=== PATIENT | female | born 1960 | race Hispanic/Latino ===

== ENCOUNTER → 2018-11-24 | Outpatient (CLI) | payer OTHER ==
[~2018-11-24] MED LIST: ASPIRIN CHEW81 MG PO; BACLOFEN10 MG PO; BRILINTA90 MG; CEFDINIR300 MG PO; CYMBALTA20 MG PO; EFFIENT10 MG PO; GABAPENTIN300 MG PO; GLIMEPIRIDE2 MG PO; JANUVIA100 MG PO; LEVEMIR100 UNIT/1; LEVOTHYROXINE112 MCG PO; LINZESS; LISINOPRIL2.5 MG PO; METFORMIN HCL500 MG PO; NAPROXEN250 MG PO; NITROGLYCERIN0.4 MG SL; SIMVASTATIN40 MG PO
--- NOTE | 2018-11-24 13:21 | Diagnostic Imaging Report ---
EXAM: US ABDOMEN COMPLETE INDICATION: Hepatic fibrosis. COMPARISON: Report from CT abdomen/pelvis 04/13/2015, although the images are not available for review at the time of this dictation. TECHNIQUE: Transverse and longitudinal barnett scale and color doppler sonographic images of the abdomen were obtained. FINDINGS: LIVER 15.6 cm in the right midclavicular line. Normal echogenicity of the liver with normal contour, no masses. SPLEEN 8.9 cm in maximum diameter. Normal echogenicity, no masses. GALLBLADDER Status post cholecystectomy. BILE DUCTS No intra nor extra-hepatic biliary dilation. Common bile duct measures 0.2 cm PANCREAS: Visualized portions are normal. RIGHT KIDNEY: 11.4 cm Echogenicity: Normal Collecting System: No hydronephrosis Stones: None Cyst/Mass: None LEFT KIDNEY: 11.1 cm Echogenicity: Normal Collecting System: No hydronephrosis Stones: None Cyst/Mass: None VESSELS: Aorta: Visualized portions are within normal size limits Inferior Vena Cava: Visualized portions are normal Main Portal Vein: 1.0 cm, normal size with hepatopetal flow. FREE FLUID: None IMPRESSION: Liver measures at the upper limits of normal. No sonographic evidence of hepatic steatosis. Status post cholecystectomy. Signed by: Dr. Irlanda López MD on 11/24/2018 1:18 PM
== END ==
LOC: US 11:01
PROVIDERS: ATTEND Internal Medicine Gastroenterology
DX: K74.0 Hepatic fibrosis (principal)
CPT/HCPCS: 76700

== ENCOUNTER → 2018-11-25 | Day surgery (SDC) | payer OTHER ==
[~2018-11-25] MED LIST changes: +FENTANYL CITRATE/PF 100MCG/2 ML INJ ONE; +INSULIN REGULAR, HUMAN 100 UNIT/1 ML 3ML VIAL ONE; +MIDAZOLAM HCL 2 MG/2 ML VIAL ONE; +PROPOFOL IV EMULSION 10 MG/ML 50 ML VIAL ONE
--- OUTSIDE RECORDS SUMMARY | 2018-11-25 06:59 | XMS REPORT ---
[facility] Unknown Phone Unavailable Care Team Providers Care Color Dipper Name Role Phone MAHI GOLDSTEIN Unavailable Unavailable Payers Payer Name Policy Type Policy Number Effective Date Expiration Date Problems This patient has no known problems. Allergies, Adverse Reactions, Alerts Allergy Name Allergy Type Status Severity Reaction(s) Onset Date Inactive Date Treating Clinician Comments No Known Allergies DA Active U 2018-10-07 00:00:00 No Known Allergies DA Active U 2018-10-04 00:00:00 No Known Allergies DA Active U 2018-02-25 00:00:00 No Known Allergies DA Active U 2017-12-22 00:00:00 Medications This patient has no known medications. Encounters Start Date/Time End Date/Time Encounter Type Admission Type Attending [facility] Care Department Encounter ID 2018-02-06 00:00:00 2018-02-06 00:00:[address] [facility] [id number] 2018-01-25 00:00:00 2018-01-25 00:00:[address] [facility] [id number] 2018-01-08 00:00:00 2018-01-08 00:00:[address] [facility] [id number] 2017-12-11 15:23:11 2017-12-11 15:23:[address] [facility] [id number] 2017-12-11 13:42:47 2017-12-11 13:42:[address] [facility] [id number] 2017-12-11 10:29:17 2017-12-11 10:29:[address] [facility] [id number] 2017-12-03 00:00:00 2017-12-03 00:00:[address] [facility] [id number] 2017-10-28 12:36:43 2017-10-28 12:36:[address] [facility] [id number] 2017-10-28 10:14:06 2017-10-28 10:14:[address] [facility] [id number] 2017-10-27 00:00:00 2017-10-27 00:00:[address] [facility] [id number] 2017-10-22 10:19:03 2017-10-22 10:19:[address] [facility] [id number] 2017-10-20 00:00:00 2017-10-20 00:00:[address] [facility] [id number] 2017-07-29 09:37:15 2017-07-29 09:37:[address] [facility] [id number] 2017-07-29 00:00:00 2017-07-29 00:00:[address] [facility] [id number] 2017-07-29 00:00:00 2017-07-29 00:00:[address] [facility] [id number] 2017-07-08 00:00:00 2017-07-08 00:00:[address] [facility] [id number] 2017-05-28 12:24:26 2017-05-28 12:24:[address] [facility] [id number] 2017-05-26 07:46:22 2017-05-26 07:46:[address] [facility] [id number] 2017-05-26 07:09:30 2017-05-26 07:09:[address] [facility] [id number] 2017-05-12 00:00:00 2017-05-12 00:00:[address] [facility] [id number] 2017-05-07 10:24:50 2017-05-07 10:24:[address] [facility] [id number] 2017-05-02 14:06:59 2017-05-02 14:06:[address] [facility] [id number] 2017-05-02 00:00:00 2017-05-02 00:00:[address] [facility] [id number] 2017-05-01 09:52:28 2017-05-01 09:52:[address] [facility] [id number] 2017-05-01 07:37:34 2017-05-01 07:37:34 Outpatient [facility] [id number] 2017-05-01 00:00:00 2017-05-01 00:00:[address] [facility] [id number] 2017-04-28 09:29:48 2017-04-28 09:29:[address] [facility] [id number] 2017-04-20 00:00:00 2017-04-20 00:00:[address] [facility] [id number] 2017-03-26 00:00:00 2017-03-26 00:00:[address] [facility] [id number] 2017-03-17 00:00:00 2017-03-17 00:00:[address] [facility] [id number] 2017-03-09 11:50:21 2017-03-09 11:50:[address] [facility] [id number] 2017-03-09 11:28:48 2017-03-09 11:28:[address] [facility] [id number] 2017-03-09 09:58:21 2017-03-09 09:58:[address] [facility] [id number] 2017-02-27 10:09:38 2017-02-27 10:09:[address] [facility] [id number] 2017-02-23 14:38:29 2017-02-23 14:38:[address] [facility] [id number] 2017-02-10 09:28:39 2017-02-10 09:28:[address] [facility] [id number] 2017-02-10 09:11:07 2017-02-10 09:11:[address] [facility] [id number] 2017-02-10 09:05:14 2017-02-10 09:05:[address] [facility] [id number] 2017-02-10 08:08:46 2017-02-10 08:08:[address] [facility] [id number] 2017-02-10 00:00:00 2017-02-10 00:00:[address] [facility] [id number] 2016-12-18 06:16:24 2016-12-18 06:16:24 Outpatient [facility] [id number] 2016-12-16 00:00:00 2016-12-16 00:00:[address] [facility] [id number] 2016-12-10 10:28:34 2016-12-10 10:28:[address] [facility] [id number] 2016-12-09 00:00:00 2016-12-09 00:00:[address] [facility] [id number] 2016-12-05 12:45:49 2016-12-05 12:45:[address] [facility] [id number] 2016-11-06 00:00:00 2016-11-06 00:00:[address] [facility] [id number] 2016-10-27 00:00:00 2016-10-27 00:00:[address] [facility] [id number] 2016-10-22 10:11:47 2016-10-22 10:11:[address] [facility] [id number] 2016-10-17 00:00:00 2016-10-17 00:00:[address] [facility] [id number] 2016-10-16 10:14:47 2016-10-16 10:14:[address] [facility] [id number] 2016-10-14 00:00:00 2016-10-14 00:00:[address] [facility] [id number] 2016-09-30 10:30:44 2016-09-30 10:30:[address] [facility] [id number] 2016-09-30 09:08:05 2016-09-30 09:08:[address] [facility] [id number] Results Test Description Test Time Test Comments Text Results Atomic Results Result Comments US ABDOMEN COMPLETE 2018-11-24 13:15:00 [place] [address] Patient Name: HOMERO KENNEDY MR #: [id number] : 1960 Age/Sex: 58/F Req #: [id number] Adm Physician: Ordered by: MAHI GOLDSTEIN MD Report #: [id number] Location: Room/Bed: Procedure: [id number] US/US ABDOMEN COMPLETE Exam Date: 11/24/18 Exam Time: 1153 REPORT STATUS: Signed EXAM: US ABDOMEN COMPLETE INDICATION: Hepatic f ibrosis. COMPARISON: Report from CT abdomen/pelvis 04/13/2015, although the images are not available for review at the time of this dictation. TECHNIQUE: Transverse and longitudinal barnett scale and color doppler sonographic images of the abdomen were obtained. FINDINGS: LIVER 15.6 cm in the right midclavicular line. Normal echogenicity of the liver with normal contour, no masses. SPLEEN 8.9 cm in maximum diameter. Normal echogenicity, no masses. GALLBLADDER Status post cholecystectomy. BILE DUCTS No intra nor extra-hepatic biliary dilation. Common bile duct measures 0.2 cm PANCREAS: Visualized portions are normal. RIGHT KIDNEY: 11.4 cm Echogenicity: Normal Collecting System: No hydronephrosis Stones: None Cyst/Mass: None LEFT KIDNEY: 11.1 cm Echogenicity: Normal Collecting System: No hydronephrosis Stones: None Cyst/Mass: None VESSELS: Aorta: Visualized portions are within normal size limits Inferior Vena Cava: Visualized portions are normal Main Portal Vein: 1.0 cm, normal size with hepatopetal flow. FREE FLUID: None IMPRESSION: Liver measures at the upper limits of normal. No sonographic evidence of hepatic steatosis. Status post cholecystectomy. Signed by: Dr. Tamra Browne MD on 11/24/2018 1:18 PM Dictated By: TAMRA BROWNE MD Transcribed By: DEMAR on 11/24/188 COPY TO: MAHI GOLDSTEIN MD GLUBED 2018-10-12 12:17:00 GLUBED (test code=GLUBED) 320 mg/dL 74-106 Performed by certified break and load operator at [facility] [id number] 08:20:00* Test Item Value Reference Range Comments GLUBED (test code=GLUBED) 199 mg/dL 74-106 Performed by certified break and load operator at [facility] [id number] 20:46:00* Test Item Value Reference Range Comments GLUBED (test code=GLUBED) 181 mg/dL 74-106 Performed by certified break and load operator at [facility] [id number] 16:48:00* Test Item Value Reference Range Comments GLUBED (test code=GLUBED) 230 mg/dL 74-106 Performed by certified break and load operator at [facility] [id number] 11:41:00* Test Item Value Reference Range Comments GLUBED (test code=GLUBED) 306 mg/dL 74-106 Performed by certified break and load operator at [facility] PROTHROMBIN [id number] 08:59:00* Test Item Value Reference Range Comments PROTHROMBIN TIME PATIENT (test code=PTP) 10.8 seconds 9.0-14.0 INTERNATIONAL NORMAL RATIO (test code=INR) 0.9 0.8-1.2 The therapeutic range for oral anticoagulant therapy formost indications is an international normalized ratio (INR)of between 2.0 and 3.0. The recommended therapeutic INRrange for various clinical situations is listed below: Clinical Situation INR range Pulmonary e mbolism treatment (2.0-3.0)Venous thrombosis treatmentVenous thrombosis prophylaxis (high risk surgery)Prevention of systemic embolism from: Acute myocardial infarction Valvular heart disease Atrial fibrillation Mechanical prosthetic heart valves (2.5-3.5) IS PATIENT ON ANTICOAGULANTS? NTHROMBOPLASTIN TIME [id number] 08:59:00* Test Item Value Reference Range Comments THROMBOPLASTIN TIME PARTIAL (test code=PTT) 29.8 seconds 25.0-36.5 IS PATIENT ON ANTICOAGULANTS? [id number] 07:44:00* Test Item Value Reference Range Comments GLUBED (test code=GLUBED) 174 mg/dL 74-106 Performed by certified break and load operator at [facility] CBC W/MANUAL [id number] 07:32:00* Test Item Value Reference Range Comments WHITE BLOOD CELL (test code=WBC) 7.4 K/mm3 4.5-12.5 RED BLOOD CELL (test code=RBC) 4.22 mill/mm3 3.7-5.2 HEMOGLOBIN (test code=HGB) 11.7 gram/dL 11.5-15.5 HEMATOCRIT (test code=HCT) 36.6 % 36.0-46.0 MEAN CELL VOLUME (test code=MCV) 86.7 fL 80-98 MEAN CELL HGB (test code=MCH) 27.7 picogram 27.0-33.0 MEAN CELL HGB CONCETRATION (test code=MCHC) 32.0 gram/dL 33.0-36.0 RED CELL DISTRIBUTION WIDTH (test code=RDW) 13.3 % 11.6-16.2 RED CELL DISTRIBUTION WIDTH SD (test code=RDW-SD) 41.6 fL 37.0-51.0 PLATELET COUNT (test code=PLT) 371 K/mm3 150-450 MEAN PLATELET VOLUME (test code=MPV) 9.1 fL 6.7-11.0 IMMATURE GRANULOCYTE % (test code=IG%) 0.3 % 0.0-5.0 NUCLEATED RBC % (test code=NRBC%) 0.0 % 0-0 NEUTROPHIL # (test code=NT#) 3.73 K/mm3 1.8-7.7 IMMATURE GRANULOCYTE # (test code=IG#) 0.02 x10 3/uL 0-0.03 LYMPHOCYTE # (test code=LY#) 3.04 K/mm3 1.0-5.0 MONOCYTE # (test code=MO#) 0.54 K/mm3 0-0.8 EOSINOPHIL # (test code=EO#) 0.00 K/mm3 0.0-0.5 BASOPHIL # (test code=BA#) 0.07 K/mm3 0.0-0.2 NUCLEATED RBC # (test code=NRBC#) 0.00 K/mm3 0.0-0.1 MANUAL DIFF REQUIRED (test code=MDIFF) YES STAIN ACCEPTABILITY (test code=STN ACCEPTABLE) STAIN ACCEPTABLE TOTAL CELLS COUNTED (test code=TCC) 114 #CELLS SEGMENTED NEUTROPHILS (test code=SEG) 61.4 % 39-69 BAND NEUTROPHIL (test code=BAND) 0 % 0-10 LYMPHOCYTE (test code=LYMPH) 28.1 % 25-55 REACTIVE LYMPH (test code=RELYMPH) 0 % MONOCYTE (test code=MON) 4.4 % 0-10 EOSINOPHIL (test code=EOS) 1.7 % 0.0-5.0 BASOPHIL (test code=BASO) 0 % 0-1.0 METAMYELOCYTE (test code=META) 1.8 % 0-0 MYELOCYTE (test code=MYELO) 1.7 % 0.0-0.0 PROMYELOCYTE (test code=PROM) 0 % 0-0 POIKILOCYTOSIS (test code=POIK) 1+ BASOPHILIC STIPPLING (test code=STP) 1+ ANISOCYTOSIS (test code=ANISO) 1+ MACROCYTOSIS (test code=MACR) 1+ ROULEAUX (test code=ROU) SLIGHT PLATELET ESTIMATE (test code=PLTEST) ADEQUATE PLATELET MORPHOLOGY (test code=PLTMORPH) NORMAL IMMATURE FORMS (test code=IMMAT) 0 % 0-0 CBC W/MANUAL [id number] 07:31:00* Test Item Value Reference Range Comments WHITE BLOOD CELL (test code=WBC) 7.4 K/mm3 4.5-12.5 RED BLOOD CELL (test code=RBC) 4.22 mill/mm3 3.7-5.2 HEMOGLOBIN (test code=HGB) 11.7 gram/dL 11.5-15.5 HEMATOCRIT (test code=HCT) 36.6 % 36.0-46.0 MEAN CELL VOLUME (test code=MCV) 86.7 fL 80-98 MEAN CELL HGB (test code=MCH) 27.7 picogram 27.0-33.0 MEAN CELL HGB CONCETRATION (test code=MCHC) 32.0 gram/dL 33.0-36.0 RED CELL DISTRIBUTION WIDTH (test code=RDW) 13.3 % 11.6-16.2 RED CELL DISTRIBUTION WIDTH SD (test code=RDW-SD) 41.6 fL 37.0-51.0 PLATELET COUNT (test code=PLT) 371 K/mm3 150-450 MEAN PLATELET VOLUME (test code=MPV) 9.1 fL 6.7-11.0 IMMATURE GRANULOCYTE % (test code=IG%) 0.3 % 0.0-5.0 NUCLEATED RBC % (test code=NRBC%) 0.0 % 0-0 NEUTROPHIL # (test code=NT#) 3.73 K/mm3 1.8-7.7 IMMATURE GRANULOCYTE # (test code=IG#) 0.02 x10 3/uL 0-0.03 LYMPHOCYTE # (test code=LY#) 3.04 K/mm3 1.0-5.0 MONOCYTE # (test code=MO#) 0.54 K/mm3 0-0.8 EOSINOPHIL # (test code=EO#) 0.00 K/mm3 0.0-0.5 BASOPHIL # (test code=BA#) 0.07 K/mm3 0.0-0.2 NUCLEATED RBC # (test code=NRBC#) 0.00 K/mm3 0.0-0.1 MANUAL DIFF REQUIRED (test code=MDIFF) YES STAIN ACCEPTABILITY (test code=STN ACCEPTABLE) TOTAL CELLS COUNTED (test code=TCC) #CELLS SEGMENTED NEUTROPHILS (test code=SEG) 61.4 % 39-69 BAND NEUTROPHIL (test code=BAND) 0 % 0-10 LYMPHOCYTE (test code=LYMPH) 28.1 % 25-55 REACTIVE LYMPH (test code=RELYMPH) 0 % MONOCYTE (test code=MON) 4.4 % 0-10 EOSINOPHIL (test code=EOS) 1.7 % 0.0-5.0 BASOPHIL (test code=BASO) 0 % 0-1.0 METAMYELOCYTE (test code=META) 1.8 % 0-0 MYELOCYTE (test code=MYELO) 1.7 % 0.0-0.0 PROMYELOCYTE (test code=PROM) 0 % 0-0 POIKILOCYTOSIS (test code=POIK) 1+ BASOPHILIC STIPPLING (test code=STP) 1+ ANISOCYTOSIS (test code=ANISO) 1+ MACROCYTOSIS (test code=MACR) 1+ ROULEAUX (test code=ROU) SLIGHT PLATELET ESTIMATE (test code=PLTEST) ADEQUATE PLATELET MORPHOLOGY (test code=PLTMORPH) NORMAL IMMATURE FORMS (test code=IMMAT) 0 % 0-0 COMPREHENSIVE METABOLIC [id number] 06:41:00* Test Item Value Reference Range Comments SODIUM (test code=NA) 138 mmol/L 136-145 POTASSIUM (test code=K) 3.2 mmol/L 3.5-5.1 CHLORIDE (test code=CL) 103.0 mmol/L 98-107 CARBON DIOXIDE (test code=CO2) 28.0 mmol/L 21-32 ANION GAP (test code=GAP) 10.2 10-20 GLUCOSE (test code=GLU) 205 mg/dL 74-106 BLOOD UREA NITROGEN (test code=BUN) 4 mg/dL 7-18 GLOMERULAR FILTRATION RATE (test code=GFR) > 60 mL/min >=60 Estimated GFR by using Modified MDRD formula.Chronic kidney disease is defined as either kidney damageor GFR <60 mL/min/1.73 m2 for >3 months. CREATININE (test code=CREAT) 0.50 mg/dL 0.55-1.02 Note change in reference range due to change in reagent. BUN/CREATININE RATIO (test code=BUN/CREA) 8.0 10-20 TOTAL PROTEIN (test code=PROT) 7.2 gram/dL 6.4-8.2 ALBUMIN (test code=ALB) 2.6 g/dL 3.4-5.0 GLOBULIN (test code=GLOB) 4.6 gram/dL 2.7-4.2 ALBUMIN/GLOBULIN RATIO (test code=A/G) 0.6 0.75-1.50 CALCIUM (test code=CA) 8.3 mg/dL 8.5-10.1 BILIRUBIN TOTAL (test code=BILT) 0.30 mg/dL 0.0-1.0 SGOT/AST (test code=AST) 9 IUnit/L 15-37 SGPT/ALT (test code=ALT) 11 IUnit/L 12-78 ALKALINE PHOSPHATASE TOTAL (test code=ALKP) 121 IUnit/L 45-117 Note change in reference range due to change in reagent. LIPID PROFILE (CORONARY RISK)2018-10-11 06:41:00* Test Item Value Reference Range Comments TRIGLYCERIDES (test code=TRIG) 81 mg/dL 20-150 CHOLESTEROL (test code=CHOL) 166 mg/dL 0-200 CHOLESTEROL/HDL RATIO (test code=CHOLHDL) 4.0 RATIO 0-4.9 RISK ASSOCIATED WITH CHOL/HDL RATIOS: Risk Male Female1/2 AVERAGE 3.43 3.27AVERAGE 4.97 4.442X AVERAGE 9.55 7.053X AVERAGE 23.39 11.04 REFERENCE VALUE IS RELATED TO RISK LEVELS ASRECOMMENDED BY THE EDDIE. HEART, LUNG, AND BLOOD INST. HDL CHOLESTEROL (test code=HDL) 39 mg/dL 40-60 LIPOPROTEIN LDL (test code=LDL) 118 mg/dL 100-129 RN PERSONNEL, CONTACT PHYSICIAN IMMEDIATELY IF THIS IS A STROKE, AMI OR CAROTID STENOSIS PATIENT WHEN THE LDL >100 (1ST OCCURENCE, THIS ADMISSION) Reference Interval: mg/dL mmol/L Optimal <100 <2.6Near/above optimal 100-129 2.6- 3.3Borderline High 130-159 3.4-4.1High 160-189 4.1-4.9Very High >=190 >=4.9=========This LDL result is a direct measurement.========= [id number] 06:41:00* Test Item Value Reference Range Comments MAGNESIUM (test code=MAG) 2.0 mg/dL 1.8-2.4 THYROID PROFILE [id number] 06:41:00* Test Item Value Reference Range Comments T3 UPTAKE (test code=T3UP) 36.0 % 30.0-40.0 T4 (THYROXINE) (test code=T4) 11.4 ug/dL 4.5-13.9 T7 (FREE THYROXINE INDEX) (test code=T7) 4.10 FTI 1.3-5.1 THYROID STIMULATING HORMONE (test code=TSH) 2.640 uIU/mL 0.36-3.74 TSH REFERENCE RANGES: EUTHYROID: 0.35 - 4.3 mIU/mL HYPO : > 5.5 mIU/mL HYPER : < 0.35 mIU/mL [id number] 06:41:00* Test Item Value Reference Range Comments TROPONIN-I (test code=TROPI) 0.015 ng/mL 0-0.045 [id number] 06:39:00* Test Item Value Reference Range Comments GLYCOSYLATED HEMOGLOBIN (HA1C) (test code=GLYHGB) 12.5 % HbA1 4.8-6.0 ESTIMATED AVERAGE GLUCOSE (test code=EAG) 312 MG/DL B-TYPE NATRIURETIC [id number] 06:38:00* Test Item Value Reference Range Comments B-TYPE NATRIURETIC PEPTIDE (test code=BNP) 233.09 pgram/mL 0-100 COMPREHENSIVE METABOLIC [id number] 06:24:00* Test Item Value Reference Range Comments SODIUM (test code=NA) 138 mmol/L 136-145 POTASSIUM (test code=K) 3.2 mmol/L 3.5-5.1 CHLORIDE (test code=CL) 103.0 mmol/L 98-107 CARBON DIOXIDE (test code=CO2) mmol/L 21-32 ANION GAP (test code=GAP) 10-20 GLUCOSE (test code=GLU) mg/dL 74-106 BLOOD UREA NITROGEN (test code=BUN) mg/dL 7-18 GLOMERULAR FILTRATION RATE (test code=GFR) mL/min >=60 CREATININE (test code=CREAT) mg/dL 0.55-1.02 BUN/CREATININE RATIO (test code=BUN/CREA) 10-20 TOTAL PROTEIN (test code=PROT) gram/dL 6.4-8.2 ALBUMIN (test code=ALB) g/dL 3.4-5.0 GLOBULIN (test code=GLOB) gram/dL 2.7-4.2 ALBUMIN/GLOBULIN RATIO (test code=A/G) 0.75-1.50 CALCIUM (test code=CA) mg/dL 8.5-10.1 BILIRUBIN TOTAL (test code=BILT) mg/dL 0.0-1.0 SGOT/AST (test code=AST) IUnit/L 15-37 SGPT/ALT (test code=ALT) IUnit/L 12-78 ALKALINE PHOSPHATASE TOTAL (test code=ALKP) IUnit/L 45-117 LIPID PROFILE (CORONARY RISK)2018-10-11 06:24:00* Test Item Value Reference Range Comments TRIGLYCERIDES (test code=TRIG) mg/dL 20-150 CHOLESTEROL (test code=CHOL) mg/dL 0-200 CHOLESTEROL/HDL RATIO (test code=CHOLHDL) RATIO 0-4.9 HDL CHOLESTEROL (test code=HDL) mg/dL 40-60 LIPOPROTEIN LDL (test code=LDL) mg/dL 100-129 [id number] 06:24:00* Test Item Value Reference Range Comments MAGNESIUM (test code=MAG) mg/dL 1.8-2.4 THYROID PROFILE [id number] 06:24:00* Test Item Value Reference Range Comments T3 UPTAKE (test code=T3UP) % 30.0-40.0 T4 (THYROXINE) (test code=T4) ug/dL 4.5-13.9 T7 (FREE THYROXINE INDEX) (test code=T7) FTI 1.3-5.1 THYROID STIMULATING HORMONE (test code=TSH) uIU/mL 0.36-3.74 [id number] 06:24:00* Test Item Value Reference Range Comments TROPONIN-I (test code=TROPI) ng/mL 0-0.045 CBC W/MANUAL [id number] 06:10:00* Test Item Value Reference Range Comments WHITE BLOOD CELL (test code=WBC) 7.4 K/mm3 4.5-12.5 RED BLOOD CELL (test code=RBC) 4.22 mill/mm3 3.7-5.2 HEMOGLOBIN (test code=HGB) 11.7 gram/dL 11.5-15.5 HEMATOCRIT (test code=HCT) 36.6 % 36.0-46.0 MEAN CELL VOLUME (test code=MCV) 86.7 fL 80-98 MEAN CELL HGB (test code=MCH) 27.7 picogram 27.0-33.0 MEAN CELL HGB CONCETRATION (test code=MCHC) 32.0 gram/dL 33.0-36.0 RED CELL DISTRIBUTION WIDTH (test code=RDW) 13.3 % 11.6-16.2 RED CELL DISTRIBUTION WIDTH SD (test code=RDW-SD) 41.6 fL 37.0-51.0 PLATELET COUNT (test code=PLT) 371 K/mm3 150-450 MEAN PLATELET VOLUME (test code=MPV) 9.1 fL 6.7-11.0 IMMATURE GRANULOCYTE % (test code=IG%) 0.3 % 0.0-5.0 NUCLEATED RBC % (test code=NRBC%) 0.0 % 0-0 NEUTROPHIL # (test code=NT#) 3.73 K/mm3 1.8-7.7 IMMATURE GRANULOCYTE # (test code=IG#) 0.02 x10 3/uL 0-0.03 LYMPHOCYTE # (test code=LY#) 3.04 K/mm3 1.0-5.0 MONOCYTE # (test code=MO#) 0.54 K/mm3 0-0.8 EOSINOPHIL # (test code=EO#) 0.00 K/mm3 0.0-0.5 BASOPHIL # (test code=BA#) 0.07 K/mm3 0.0-0.2 NUCLEATED RBC # (test code=NRBC#) 0.00 K/mm3 0.0-0.1 MANUAL DIFF REQUIRED (test code=MDIFF) YES STAIN ACCEPTABILITY (test code=STN ACCEPTABLE) TOTAL CELLS COUNTED (test code=TCC) #CELLS SEGMENTED NEUTROPHILS (test code=SEG) % 39-69 LYMPHOCYTE (test code=LYMPH) % 25-55 MONOCYTE (test code=MON) % 0-10 EOSINOPHIL (test code=EOS) % 0.0-5.0 CABOT RINGS (test code=CAB) MORPHOLOGY COMMENT (test code=MOC) PLATELET ESTIMATE (test code=PLTEST) PLATELET MORPHOLOGY (test code=PLTMORPH) CBC W/MANUAL [id number] 06:10:00* Test Item Value Reference Range Comments WHITE BLOOD CELL (test code=WBC) 7.4 K/mm3 4.5-12.5 RED BLOOD CELL (test code=RBC) 4.22 mill/mm3 3.7-5.2 HEMOGLOBIN (test code=HGB) 11.7 gram/dL 11.5-15.5 HEMATOCRIT (test code=HCT) 36.6 % 36.0-46.0 MEAN CELL VOLUME (test code=MCV) 86.7 fL 80-98 MEAN CELL HGB (test code=MCH) 27.7 picogram 27.0-33.0 MEAN CELL HGB CONCETRATION (test code=MCHC) 32.0 gram/dL 33.0-36.0 RED CELL DISTRIBUTION WIDTH (test code=RDW) 13.3 % 11.6-16.2 RED CELL DISTRIBUTION WIDTH SD (test code=RDW-SD) 41.6 fL 37.0-51.0 PLATELET COUNT (test code=PLT) 371 K/mm3 150-450 MEAN PLATELET VOLUME (test code=MPV) 9.1 fL 6.7-11.0 IMMATURE GRANULOCYTE % (test code=IG%) 0.3 % 0.0-5.0 NUCLEATED RBC % (test code=NRBC%) 0.0 % 0-0 NEUTROPHIL # (test code=NT#) 3.73 K/mm3 1.8-7.7 IMMATURE GRANULOCYTE # (test code=IG#) 0.02 x10 3/uL 0-0.03 LYMPHOCYTE # (test code=LY#) 3.04 K/mm3 1.0-5.0 MONOCYTE # (test code=MO#) 0.54 K/mm3 0-0.8 EOSINOPHIL # (test code=EO#) 0.00 K/mm3 0.0-0.5 BASOPHIL # (test code=BA#) 0.07 K/mm3 0.0-0.2 NUCLEATED RBC # (test code=NRBC#) 0.00 K/mm3 0.0-0.1 MANUAL DIFF REQUIRED (test code=MDIFF) YES STAIN ACCEPTABILITY (test code=STN ACCEPTABLE) TOTAL CELLS COUNTED (test code=TCC) #CELLS SEGMENTED NEUTROPHILS (test code=SEG) % 39-69 LYMPHOCYTE (test code=LYMPH) % 25-55 MONOCYTE (test code=MON) % 0-10 EOSINOPHIL (test code=EOS) % 0.0-5.0 MORPHOLOGY COMMENT (test code=MOC) PLATELET ESTIMATE (test code=PLTEST) PLATELET MORPHOLOGY (test code=PLTMORPH) CBC W/MANUAL [id number] 06:10:00* Test Item Value Reference Range Comments WHITE BLOOD CELL (test code=WBC) 7.4 K/mm3 4.5-12.5 RED BLOOD CELL (test code=RBC) 4.22 mill/mm3 3.7-5.2 HEMOGLOBIN (test code=HGB) 11.7 gram/dL 11.5-15.5 HEMATOCRIT (test code=HCT) 36.6 % 36.0-46.0 MEAN CELL VOLUME (test code=MCV) 86.7 fL 80-98 MEAN CELL HGB (test code=MCH) 27.7 picogram 27.0-33.0 MEAN CELL HGB CONCETRATION (test code=MCHC) 32.0 gram/dL 33.0-36.0 RED CELL DISTRIBUTION WIDTH (test code=RDW) 13.3 % 11.6-16.2 RED CELL DISTRIBUTION WIDTH SD (test code=RDW-SD) 41.6 fL 37.0-51.0 PLATELET COUNT (test code=PLT) 371 K/mm3 150-450 MEAN PLATELET VOLUME (test code=MPV) 9.1 fL 6.7-11.0 IMMATURE GRANULOCYTE % (test code=IG%) 0.3 % 0.0-5.0 NUCLEATED RBC % (test code=NRBC%) 0.0 % 0-0 NEUTROPHIL # (test code=NT#) 3.73 K/mm3 1.8-7.7 IMMATURE GRANULOCYTE # (test code=IG#) 0.02 x10 3/uL 0-0.03 LYMPHOCYTE # (test code=LY#) 3.04 K/mm3 1.0-5.0 MONOCYTE # (test code=MO#) 0.54 K/mm3 0-0.8 EOSINOPHIL # (test code=EO#) 0.00 K/mm3 0.0-0.5 BASOPHIL # (test code=BA#) 0.07 K/mm3 0.0-0.2 NUCLEATED RBC # (test code=NRBC#) 0.00 K/mm3 0.0-0.1 MANUAL DIFF REQUIRED (test code=MDIFF) YES STAIN ACCEPTABILITY (test code=STN ACCEPTABLE) TOTAL CELLS COUNTED (test code=TCC) #CELLS SEGMENTED NEUTROPHILS (test code=SEG) % 39-69 LYMPHOCYTE (test code=LYMPH) % 25-55 MONOCYTE (test code=MON) % 0-10 MORPHOLOGY COMMENT (test code=MOC) PLATELET ESTIMATE (test code=PLTEST) PLATELET MORPHOLOGY (test code=PLTMORPH) CBC W/MANUAL [id number] 06:09:00* Test Item Value Reference Range Comments WHITE BLOOD CELL (test code=WBC) 7.4 K/mm3 4.5-12.5 RED BLOOD CELL (test code=RBC) 4.22 mill/mm3 3.7-5.2 HEMOGLOBIN (test code=HGB) 11.7 gram/dL 11.5-15.5 HEMATOCRIT (test code=HCT) 36.6 % 36.0-46.0 MEAN CELL VOLUME (test code=MCV) 86.7 fL 80-98 MEAN CELL HGB (test code=MCH) 27.7 picogram 27.0-33.0 MEAN CELL HGB CONCETRATION (test code=MCHC) 32.0 gram/dL 33.0-36.0 RED CELL DISTRIBUTION WIDTH (test code=RDW) 13.3 % 11.6-16.2 RED CELL DISTRIBUTION WIDTH SD (test code=RDW-SD) 41.6 fL 37.0-51.0 PLATELET COUNT (test code=PLT) 371 K/mm3 150-450 MEAN PLATELET VOLUME (test code=MPV) 9.1 fL 6.7-11.0 IMMATURE GRANULOCYTE % (test code=IG%) 0.3 % 0.0-5.0 NUCLEATED RBC % (test code=NRBC%) 0.0 % 0-0 NEUTROPHIL # (test code=NT#) 3.73 K/mm3 1.8-7.7 IMMATURE GRANULOCYTE # (test code=IG#) 0.02 x10 3/uL 0-0.03 LYMPHOCYTE # (test code=LY#) 3.04 K/mm3 1.0-5.0 MONOCYTE # (test code=MO#) 0.54 K/mm3 0-0.8 EOSINOPHIL # (test code=EO#) 0.00 K/mm3 0.0-0.5 BASOPHIL # (test code=BA#) 0.07 K/mm3 0.0-0.2 NUCLEATED RBC # (test code=NRBC#) 0.00 K/mm3 0.0-0.1 MANUAL DIFF REQUIRED (test code=MDIFF) YES STAIN ACCEPTABILITY (test code=STN ACCEPTABLE) TOTAL CELLS COUNTED (test code=TCC) #CELLS SEGMENTED NEUTROPHILS (test code=SEG) % 39-69 LYMPHOCYTE (test code=LYMPH) % 25-55 MONOCYTE (test code=MON) % 0-10 EOSINOPHIL (test code=EOS) % 0.0-5.0 CABOT RINGS (test code=CAB) MORPHOLOGY COMMENT (test code=MOC) PLATELET ESTIMATE (test code=PLTEST) PLATELET MORPHOLOGY (test code=PLTMORPH) CBC W/MANUAL [id number] 06:09:00* Test Item Value Reference Range Comments WHITE BLOOD CELL (test code=WBC) 7.4 K/mm3 4.5-12.5 RED BLOOD CELL (test code=RBC) 4.22 mill/mm3 3.7-5.2 HEMOGLOBIN (test code=HGB) 11.7 gram/dL 11.5-15.5 HEMATOCRIT (test code=HCT) 36.6 % 36.0-46.0 MEAN CELL VOLUME (test code=MCV) 86.7 fL 80-98 MEAN CELL HGB (test code=MCH) 27.7 picogram 27.0-33.0 MEAN CELL HGB CONCETRATION (test code=MCHC) 32.0 gram/dL 33.0-36.0 RED CELL DISTRIBUTION WIDTH (test code=RDW) 13.3 % 11.6-16.2 RED CELL DISTRIBUTION WIDTH SD (test code=RDW-SD) 41.6 fL 37.0-51.0 PLATELET COUNT (test code=PLT) 371 K/mm3 150-450 MEAN PLATELET VOLUME (test code=MPV) 9.1 fL 6.7-11.0 IMMATURE GRANULOCYTE % (test code=IG%) 0.3 % 0.0-5.0 NUCLEATED RBC % (test code=NRBC%) 0.0 % 0-0 NEUTROPHIL # (test code=NT#) 3.73 K/mm3 1.8-7.7 IMMATURE GRANULOCYTE # (test code=IG#) 0.02 x10 3/uL 0-0.03 LYMPHOCYTE # (test code=LY#) 3.04 K/mm3 1.0-5.0 MONOCYTE # (test code=MO#) 0.54 K/mm3 0-0.8 EOSINOPHIL # (test code=EO#) 0.00 K/mm3 0.0-0.5 BASOPHIL # (test code=BA#) 0.07 K/mm3 0.0-0.2 NUCLEATED RBC # (test code=NRBC#) 0.00 K/mm3 0.0-0.1 MANUAL DIFF REQUIRED (test code=MDIFF) YES STAIN ACCEPTABILITY (test code=STN ACCEPTABLE) TOTAL CELLS COUNTED (test code=TCC) #CELLS SEGMENTED NEUTROPHILS (test code=SEG) % 39-69 LYMPHOCYTE (test code=LYMPH) % 25-55 MONOCYTE (test code=MON) % 0-10 EOSINOPHIL (test code=EOS) % 0.0-5.0 CABOT RINGS (test code=CAB) MORPHOLOGY COMMENT (test code=MOC) PLATELET ESTIMATE (test code=PLTEST) PLATELET MORPHOLOGY (test code=PLTMORPH) [id number] 20:40:00* Test Item Value Reference Range Comments GLUBED (test code=GLUBED) 199 mg/dL 74-106 Performed by certified break and load operator at [facility] [id number] 16:43:00* Test Item Value Reference Range Comments GLUBED (test code=GLUBED) 274 mg/dL 74-106 Performed by certified break and load operator at [facility] [id number] 12:01:00* Test Item Value Reference Range Comments GLUBED (test code=GLUBED) 224 mg/dL 74-106 Performed by certified break and load operator at [facility] [id number] 08:11:00* Test Item Value Reference Range Comments GLUBED (test code=GLUBED) 249 mg/dL 74-106 Performed by certified break and load operator at [facility] [id number] 00:11:00* Test Item Value Reference Range Comments GLUBED (test code=GLUBED) 329 mg/dL 74-106 Performed by certified break and load operator at [facility] [id number] 16:50:00* Test Item Value Reference Range Comments GLUBED (test code=GLUBED) 148 mg/dL 74-106 Performed by certified break and load operator at [facility] [id number] 11:15:00* Test Item Value Reference Range Comments GLUBED (test code=GLUBED) 189 mg/dL 74-106 Performed by certified break and load operator at [facility] [id number] 08:20:00* Test Item Value Reference Range Comments POTASSIUM (test code=K) 3.6 mmol/L 3.5-5.1 [id number] 07:30:00* Test Item Value Reference Range Comments GLUBED (test code=GLUBED) 225 mg/dL 74-106 Performed by certified break and load operator at [facility] [id number] 20:14:00* Test Item Value Reference Range Comments GLUBED (test code=GLUBED) 157 mg/dL 74-106 Performed by certified break and load operator at [facility] [id number] 16:26:00* Test Item Value Reference Range Comments GLUBED (test code=GLUBED) 183 mg/dL 74-106 Performed by certified break and load operator at [facility] [id number] 11:44:00* Test Item Value Reference Range Comments GLUBED (test code=GLUBED) 275 mg/dL 74-106 Performed by certified break and load operator at [facility] BASIC METABOLIC [id number] 06:06:00* Test Item Value Reference Range Comments SODIUM (test code=NA) 137 mmol/L 136-145 POTASSIUM (test code=K) 2.9 mmol/L 3.5-5.1 Results called to [id number] V.LAB.KNG1 10/08/18 0605Critical results verified and read back by Nurse? Y CHLORIDE (test code=CL) 102.0 mmol/L 98-107 CARBON DIOXIDE (test code=CO2) 28.0 mmol/L 21-32 ANION GAP (test code=GAP) 9.9 10-20 GLUCOSE (test code=GLU) 257 mg/dL 74-106 BLOOD UREA NITROGEN (test code=BUN) 6 mg/dL 7-18 GLOMERULAR FILTRATION RATE (test code=GFR) > 60 mL/min >=60 Estimated GFR by using Modified MDRD formula.Chronic kidney disease is defined as either kidney damageor GFR <60 mL/min/1.73 m2 for >3 months. CREATININE (test code=CREAT) 0.60 mg/dL 0.55-1.02 Note change in reference range due to change in reagent. BUN/CREATININE RATIO (test code=BUN/CREA) 10.0 10-20 CALCIUM (test code=CA) 8.7 mg/dL 8.5-10.1 HEPATIC FUNCTION [id number] 06:06:00* Test Item Value Reference Range Comments TOTAL PROTEIN (test code=PROT) 8.1 gram/dL 6.4-8.2 ALBUMIN (test code=ALB) 3.0 g/dL 3.4-5.0 GLOBULIN (test code=GLOB) 5.1 gram/dL 2.7-4.2 ALBUMIN/GLOBULIN RATIO (test code=A/G) 0.6 0.75-1.50 BILIRUBIN TOTAL (test code=BILT) 0.50 mg/dL 0.0-1.0 BILIRUBIN DIRECT (test code=BILD) 0.11 mg/dL 0.0-0.20 SGOT/AST (test code=AST) 8 IUnit/L 15-37 SGPT/ALT (test code=ALT) 11 IUnit/L 12-78 ALKALINE PHOSPHATASE TOTAL (test code=ALKP) 146 IUnit/L 45-117 Note change in reference range due to change in reagent. CBC W/MANUAL [id number] 00:53:00* Test Item Value Reference Range Comments WHITE BLOOD CELL (test code=WBC) 11.6 K/mm3 4.5-12.5 RED BLOOD CELL (test code=RBC) 4.98 mill/mm3 3.7-5.2 HEMOGLOBIN (test code=HGB) 13.7 gram/dL 11.5-15.5 HEMATOCRIT (test code=HCT) 43.0 % 36.0-46.0 MEAN CELL VOLUME (test code=MCV) 86.3 fL 80-98 MEAN CELL HGB (test code=MCH) 27.5 picogram 27.0-33.0 MEAN CELL HGB CONCETRATION (test code=MCHC) 31.9 gram/dL 33.0-36.0 RED CELL DISTRIBUTION WIDTH (test code=RDW) 13.4 % 11.6-16.2 RED CELL DISTRIBUTION WIDTH SD (test code=RDW-SD) 41.5 fL 37.0-51.0 PLATELET COUNT (test code=PLT) 451 K/mm3 150-450 MEAN PLATELET VOLUME (test code=MPV) 9.1 fL 6.7-11.0 IMMATURE GRANULOCYTE % (test code=IG%) 0.4 % 0.0-5.0 NUCLEATED RBC % (test code=NRBC%) 0.0 % 0-0 NEUTROPHIL # (test code=NT#) 6.56 K/mm3 1.8-7.7 IMMATURE GRANULOCYTE # (test code=IG#) 0.05 x10 3/uL 0-0.03 LYMPHOCYTE # (test code=LY#) 4.22 K/mm3 1.0-5.0 MONOCYTE # (test code=MO#) 0.66 K/mm3 0-0.8 EOSINOPHIL # (test code=EO#) 0.00 K/mm3 0.0-0.5 BASOPHIL # (test code=BA#) 0.08 K/mm3 0.0-0.2 NUCLEATED RBC # (test code=NRBC#) 0.00 K/mm3 0.0-0.1 MANUAL DIFF REQUIRED (test code=MDIFF) YES STAIN ACCEPTABILITY (test code=STN ACCEPTABLE) STAIN ACCEPTABLE TOTAL CELLS COUNTED (test code=TCC) 115 #CELLS SEGMENTED NEUTROPHILS (test code=SEG) 53.9 % 39-69 BAND NEUTROPHIL (test code=BAND) 0 % 0-10 LYMPHOCYTE (test code=LYMPH) 35.7 % 25-55 REACTIVE LYMPH (test code=RELYMPH) 1.7 % MONOCYTE (test code=MON) 6.1 % 0-10 EOSINOPHIL (test code=EOS) 2.6 % 0.0-5.0 BASOPHIL (test code=BASO) 0 % 0-1.0 METAMYELOCYTE (test code=META) 0 % 0-0 MYELOCYTE (test code=MYELO) 0 % 0.0-0.0 PROMYELOCYTE (test code=PROM) 0 % 0-0 POLYCHROMASIA (test code=POLC) 1+ PLATELET ESTIMATE (test code=PLTEST) ADEQUATE PLATELET MORPHOLOGY (test code=PLTMORPH) NORMAL IMMATURE FORMS (test code=IMMAT) 0 % 0-0 CBC W/MANUAL [id number] 23:27:00* Test Item Value Reference Range Comments WHITE BLOOD CELL (test code=WBC) 11.6 K/mm3 4.5-12.5 RED BLOOD CELL (test code=RBC) 4.98 mill/mm3 3.7-5.2 HEMOGLOBIN (test code=HGB) 13.7 gram/dL 11.5-15.5 HEMATOCRIT (test code=HCT) 43.0 % 36.0-46.0 MEAN CELL VOLUME (test code=MCV) 86.3 fL 80-98 MEAN CELL HGB (test code=MCH) 27.5 picogram 27.0-33.0 MEAN CELL HGB CONCETRATION (test code=MCHC) 31.9 gram/dL 33.0-36.0 RED CELL DISTRIBUTION WIDTH (test code=RDW) 13.4 % 11.6-16.2 RED CELL DISTRIBUTION WIDTH SD (test code=RDW-SD) 41.5 fL 37.0-51.0 PLATELET COUNT (test code=PLT) 451 K/mm3 150-450 MEAN PLATELET VOLUME (test code=MPV) 9.1 fL 6.7-11.0 IMMATURE GRANULOCYTE % (test code=IG%) 0.4 % 0.0-5.0 NUCLEATED RBC % (test code=NRBC%) 0.0 % 0-0 NEUTROPHIL # (test code=NT#) 6.56 K/mm3 1.8-7.7 IMMATURE GRANULOCYTE # (test code=IG#) 0.05 x10 3/uL 0-0.03 LYMPHOCYTE # (test code=LY#) 4.22 K/mm3 1.0-5.0 MONOCYTE # (test code=MO#) 0.66 K/mm3 0-0.8 EOSINOPHIL # (test code=EO#) 0.00 K/mm3 0.0-0.5 BASOPHIL # (test code=BA#) 0.08 K/mm3 0.0-0.2 NUCLEATED RBC # (test code=NRBC#) 0.00 K/mm3 0.0-0.1 MANUAL DIFF REQUIRED (test code=MDIFF) YES STAIN ACCEPTABILITY (test code=STN ACCEPTABLE) TOTAL CELLS COUNTED (test code=TCC) #CELLS SEGMENTED NEUTROPHILS (test code=SEG) % 39-69 LYMPHOCYTE (test code=LYMPH) % 25-55 MONOCYTE (test code=MON) % 0-10 EOSINOPHIL (test code=EOS) % 0.0-5.0 CABOT RINGS (test code=CAB) MORPHOLOGY COMMENT (test code=MOC) PLATELET ESTIMATE (test code=PLTEST) PLATELET MORPHOLOGY (test code=PLTMORPH) CBC W/MANUAL [id number] 23:27:00* Test Item Value Reference Range Comments WHITE BLOOD CELL (test code=WBC) 11.6 K/mm3 4.5-12.5 RED BLOOD CELL (test code=RBC) 4.98 mill/mm3 3.7-5.2 HEMOGLOBIN (test code=HGB) 13.7 gram/dL 11.5-15.5 HEMATOCRIT (test code=HCT) 43.0 % 36.0-46.0 MEAN CELL VOLUME (test code=MCV) 86.3 fL 80-98 MEAN CELL HGB (test code=MCH) 27.5 picogram 27.0-33.0 MEAN CELL HGB CONCETRATION (test code=MCHC) 31.9 gram/dL 33.0-36.0 RED CELL DISTRIBUTION WIDTH (test code=RDW) 13.4 % 11.6-16.2 RED CELL DISTRIBUTION WIDTH SD (test code=RDW-SD) 41.5 fL 37.0-51.0 PLATELET COUNT (test code=PLT) 451 K/mm3 150-450 MEAN PLATELET VOLUME (test code=MPV) 9.1 fL 6.7-11.0 IMMATURE GRANULOCYTE % (test code=IG%) 0.4 % 0.0-5.0 NUCLEATED RBC % (test code=NRBC%) 0.0 % 0-0 NEUTROPHIL # (test code=NT#) 6.56 K/mm3 1.8-7.7 IMMATURE GRANULOCYTE # (test code=IG#) 0.05 x10 3/uL 0-0.03 LYMPHOCYTE # (test code=LY#) 4.22 K/mm3 1.0-5.0 MONOCYTE # (test code=MO#) 0.66 K/mm3 0-0.8 EOSINOPHIL # (test code=EO#) 0.00 K/mm3 0.0-0.5 BASOPHIL # (test code=BA#) 0.08 K/mm3 0.0-0.2 NUCLEATED RBC # (test code=NRBC#) 0.00 K/mm3 0.0-0.1 MANUAL DIFF REQUIRED (test code=MDIFF) YES STAIN ACCEPTABILITY (test code=STN ACCEPTABLE) TOTAL CELLS COUNTED (test code=TCC) #CELLS SEGMENTED NEUTROPHILS (test code=SEG) % 39-69 LYMPHOCYTE (test code=LYMPH) % 25-55 MONOCYTE (test code=MON) % 0-10 EOSINOPHIL (test code=EOS) % 0.0-5.0 CABOT RINGS (test code=CAB) MORPHOLOGY COMMENT (test code=MOC) PLATELET ESTIMATE (test code=PLTEST) PLATELET MORPHOLOGY (test code=PLTMORPH) CBC W/MANUAL [id number] 23:27:00* Test Item Value Reference Range Comments WHITE BLOOD CELL (test code=WBC) 11.6 K/mm3 4.5-12.5 RED BLOOD CELL (test code=RBC) 4.98 mill/mm3 3.7-5.2 HEMOGLOBIN (test code=HGB) 13.7 gram/dL 11.5-15.5 HEMATOCRIT (test code=HCT) 43.0 % 36.0-46.0 MEAN CELL VOLUME (test code=MCV) 86.3 fL 80-98 MEAN CELL HGB (test code=MCH) 27.5 picogram 27.0-33.0 MEAN CELL HGB CONCETRATION (test code=MCHC) 31.9 gram/dL 33.0-36.0 RED CELL DISTRIBUTION WIDTH (test code=RDW) 13.4 % 11.6-16.2 RED CELL DISTRIBUTION WIDTH SD (test code=RDW-SD) 41.5 fL 37.0-51.0 PLATELET COUNT (test code=PLT) 451 K/mm3 150-450 MEAN PLATELET VOLUME (test code=MPV) 9.1 fL 6.7-11.0 IMMATURE GRANULOCYTE % (test code=IG%) 0.4 % 0.0-5.0 NUCLEATED RBC % (test code=NRBC%) 0.0 % 0-0 NEUTROPHIL # (test code=NT#) 6.56 K/mm3 1.8-7.7 IMMATURE GRANULOCYTE # (test code=IG#) 0.05 x10 3/uL 0-0.03 LYMPHOCYTE # (test code=LY#) 4.22 K/mm3 1.0-5.0 MONOCYTE # (test code=MO#) 0.66 K/mm3 0-0.8 EOSINOPHIL # (test code=EO#) 0.00 K/mm3 0.0-0.5 BASOPHIL # (test code=BA#) 0.08 K/mm3 0.0-0.2 NUCLEATED RBC # (test code=NRBC#) 0.00 K/mm3 0.0-0.1 MANUAL DIFF REQUIRED (test code=MDIFF) YES STAIN ACCEPTABILITY (test code=STN ACCEPTABLE) TOTAL CELLS COUNTED (test code=TCC) #CELLS SEGMENTED NEUTROPHILS (test code=SEG) % 39-69 LYMPHOCYTE (test code=LYMPH) % 25-55 MONOCYTE (test code=MON) % 0-10 EOSINOPHIL (test code=EOS) % 0.0-5.0 MORPHOLOGY COMMENT (test code=MOC) PLATELET ESTIMATE (test code=PLTEST) PLATELET MORPHOLOGY (test code=PLTMORPH) CBC W/MANUAL [id number] 23:27:00* Test Item Value Reference Range Comments WHITE BLOOD CELL (test code=WBC) 11.6 K/mm3 4.5-12.5 RED BLOOD CELL (test code=RBC) 4.98 mill/mm3 3.7-5.2 HEMOGLOBIN (test code=HGB) 13.7 gram/dL 11.5-15.5 HEMATOCRIT (test code=HCT) 43.0 % 36.0-46.0 MEAN CELL VOLUME (test code=MCV) 86.3 fL 80-98 MEAN CELL HGB (test code=MCH) 27.5 picogram 27.0-33.0 MEAN CELL HGB CONCETRATION (test code=MCHC) 31.9 gram/dL 33.0-36.0 RED CELL DISTRIBUTION WIDTH (test code=RDW) 13.4 % 11.6-16.2 RED CELL DISTRIBUTION WIDTH SD (test code=RDW-SD) 41.5 fL 37.0-51.0 PLATELET COUNT (test code=PLT) 451 K/mm3 150-450 MEAN PLATELET VOLUME (test code=MPV) 9.1 fL 6.7-11.0 IMMATURE GRANULOCYTE % (test code=IG%) 0.4 % 0.0-5.0 NUCLEATED RBC % (test code=NRBC%) 0.0 % 0-0 NEUTROPHIL # (test code=NT#) 6.56 K/mm3 1.8-7.7 IMMATURE GRANULOCYTE # (test code=IG#) 0.05 x10 3/uL 0-0.03 LYMPHOCYTE # (test code=LY#) 4.22 K/mm3 1.0-5.0 MONOCYTE # (test code=MO#) 0.66 K/mm3 0-0.8 EOSINOPHIL # (test code=EO#) 0.00 K/mm3 0.0-0.5 BASOPHIL # (test code=BA#) 0.08 K/mm3 0.0-0.2 NUCLEATED RBC # (test code=NRBC#) 0.00 K/mm3 0.0-0.1 MANUAL DIFF REQUIRED (test code=MDIFF) YES STAIN ACCEPTABILITY (test code=STN ACCEPTABLE) TOTAL CELLS COUNTED (test code=TCC) #CELLS SEGMENTED NEUTROPHILS (test code=SEG) % 39-69 LYMPHOCYTE (test code=LYMPH) % 25-55 MONOCYTE (test code=MON) % 0-10 MORPHOLOGY COMMENT (test code=MOC) PLATELET ESTIMATE (test code=PLTEST) PLATELET MORPHOLOGY (test code=PLTMORPH) CBC W/MANUAL [id number] 23:27:00* Test Item Value Reference Range Comments WHITE BLOOD CELL (test code=WBC) 11.6 K/mm3 4.5-12.5 RED BLOOD CELL (test code=RBC) 4.98 mill/mm3 3.7-5.2 HEMOGLOBIN (test code=HGB) 13.7 gram/dL 11.5-15.5 HEMATOCRIT (test code=HCT) 43.0 % 36.0-46.0 MEAN CELL VOLUME (test code=MCV) 86.3 fL 80-98 MEAN CELL HGB (test code=MCH) 27.5 picogram 27.0-33.0 MEAN CELL HGB CONCETRATION (test code=MCHC) 31.9 gram/dL 33.0-36.0 RED CELL DISTRIBUTION WIDTH (test code=RDW) 13.4 % 11.6-16.2 RED CELL DISTRIBUTION WIDTH SD (test code=RDW-SD) 41.5 fL 37.0-51.0 PLATELET COUNT (test code=PLT) 451 K/mm3 150-450 MEAN PLATELET VOLUME (test code=MPV) 9.1 fL 6.7-11.0 IMMATURE GRANULOCYTE % (test code=IG%) 0.4 % 0.0-5.0 NUCLEATED RBC % (test code=NRBC%) 0.0 % 0-0 NEUTROPHIL # (test code=NT#) 6.56 K/mm3 1.8-7.7 IMMATURE GRANULOCYTE # (test code=IG#) 0.05 x10 3/uL 0-0.03 LYMPHOCYTE # (test code=LY#) 4.22 K/mm3 1.0-5.0 MONOCYTE # (test code=MO#) 0.66 K/mm3 0-0.8 EOSINOPHIL # (test code=EO#) 0.00 K/mm3 0.0-0.5 BASOPHIL # (test code=BA#) 0.08 K/mm3 0.0-0.2 NUCLEATED RBC # (test code=NRBC#) 0.00 K/mm3 0.0-0.1 MANUAL DIFF REQUIRED (test code=MDIFF) YES STAIN ACCEPTABILITY (test code=STN ACCEPTABLE) TOTAL CELLS COUNTED (test code=TCC) #CELLS SEGMENTED NEUTROPHILS (test code=SEG) % 39-69 LYMPHOCYTE (test code=LYMPH) % 25-55 MONOCYTE (test code=MON) % 0-10 EOSINOPHIL (test code=EOS) % 0.0-5.0 CABOT RINGS (test code=CAB) MORPHOLOGY COMMENT (test code=MOC) PLATELET ESTIMATE (test code=PLTEST) PLATELET MORPHOLOGY (test code=PLTMORPH) - CT ABD PELVIS [id number] 22:04:00 [facility] 1960 Age[facility]S: 57 / F [address] Unit #: [id number] Loc: [place] [address] Phys: Cassandra Barragan MD Acct: [id number] Dis Date: Status: REG ER PHONE #: [phone] Exam Date: 10/04/2018 2142 FAX #: [phone] Reason: lower abdominal pain, vaginal bleeding EXAMS: CPT CODE: [id number] CT ABD PELVIS W/CONT 01151 HISTORY: Lower abdominal pain and vaginal bleeding. COMPARISON: Pelvic ultrasound from same day and CT scan from January 01, 2018. CT abdomen and pelvis with IV contrast: 100 mL of Isovue- 370. Automated exposure control CT of abdomen: The lung bases are clear. Dependent changes. The liver is enhancing homogeneously. Patient is post cholecystectomy. The liver is not enlarged. Portal vein and hepatic artery are patent. Unremarkable spleen. Stomach distended incompletely however it is normal in appearance. Pancreas is enhancing homogeneously with unremarkable adrenals. Kidneys are free from hydroureteronephrosis with homogeneous enhancement. Bilateral excretion. No pathologic adenopathy. Well-opacified abdominal and pelvic vasculature. Mild atherosclerotic change. No bowel obstruction or colitis or diverticulitis or enteritis. Constipation. CT PELVIS: Appendix is not visible but no inflammation. Pelvic bowel loops are unobstructed. Unremarkable urinary bladder. Patient is post hysterectomy. Konrad's duct cyst measuring 1.2 cm is noted again and unchanged from previous exam. No pelvic mass or free fluid. Ovaries are not visible either. Single pathologic left inguinal node measured 1.5 cm on the right side is nonspecific finding and unchanged from previous exam. No free fluid or free air or abscess. Subcutaneous tissues and musculature are normal in appearance. No lytic or blastic lesions are noted within the bony skeleton. PAGE 1 Signed Report (CONTINUED) Name: HOMERO KENNEDY [facility] : 1960 Age/S: 57 / F [address] Unit #: [id number] Loc: [place] [address] Phys: Cassandra Barragan MD Acct: [id number] Dis Date: Status: REG ER PHONE #: [phone] Exam Date: 10/04/20182141 FAX #: [phone] Reason: lower abdominal pain, vaginal bleeding EXAMS: CPT CODE: [id number] CT ABD PELVIS W/CONT 42345 <Continued> IMPRESSION: No acute intra- abdominal or intrapelvic pathology. at 2204 Reported and signed by: Shoaib Huynh M.D. CC: Brendon Hollingsworth DO; Cassandra Barragan MD Technologist:Kady Lee RT(R); PANCHITO Leslie CTDI: DLP: Trnscb Date/Time: 10/04/2018 (2203) [email or web address] Orig Print D/T: S: 10/04/2018 (2206) PAGE 2 Signed Report URINALYSIS [id number] 20:31:00* Test Item Value Reference Range Comments UA COLOR (test code=COLU) Light-Yellow YELLOW UA APPEARANCE (test code=APPU) CLEAR CLEAR UA GLUCOSE DIPSTICK (test code=DGLUU) >1000 (4+) mg/dL NEGATIVE UA BILIRUBIN DIPSTICK (test code=BILU) NEGATIVE mg/dL NEGATIVE UA KETONE DIPSTICK (test code=KETU) NEGATIVE mg/dL NEGATIVE UA SPECIFIC GRAVITY (test code=SGU) 1.014 1.001-1.035 UA BLOOD DIPSTICK (test code=BRYCE) 0.1 mg/dL (1+) mg/dL NEGATIVE UA PH DIPSTICK (test code=AUSTEN) 5.5 5.0-8.0 UA PROTEIN DIPSTICK (test code=PROU) NEGATIVE mg/dL NEGATIVE UA UROBILINIOGEN DIPSTICK (test code=URO) Normal mg/dL NEGATIVE UA NITRITE DIPSTICK (test code=BOB) NEGATIVE NEGATIVE UA LEUKOCYTE ESTERASE W REFLEX (test code=LEUUR) NEGATIVE Linh/uL NEGATIVE UA WBC (test code=WBCU) 0-5 per HPF 0-5 UA RBC (test code=RBCU) 0-2 #/HPF 0-5 UA EPITHELIAL CELLS (test code=EPIU) FEW per HPF FEW UA BACTERIA (test code=BACU) FEW #/HPF NONE Urine Source? Clean CatchURINALYSIS [id number] 20:00:00* Test Item Value Reference Range Comments UA COLOR (test code=COLU) PINKISH YELLOW UA APPEARANCE (test code=APPU) HAZY CLEAR UA GLUCOSE DIPSTICK (test code=DGLUU) >1000 (4+) mg/dL NEGATIVE UA BILIRUBIN DIPSTICK (test code=BILU) NEGATIVE mg/dL NEGATIVE UA KETONE DIPSTICK (test code=KETU) NEGATIVE mg/dL NEGATIVE UA SPECIFIC GRAVITY (test code=SGU) 1.011 1.001-1.035 UA BLOOD DIPSTICK (test code=BRYCE) 1.0 mg/dL (3+) mg/dL NEGATIVE UA PH DIPSTICK (test code=AUSTEN) 5.5 5.0-8.0 UA PROTEIN DIPSTICK (test code=PROU) 10 (Trace) mg/dL NEGATIVE UA UROBILINIOGEN DIPSTICK (test code=URO) Normal mg/dL NEGATIVE UA NITRITE DIPSTICK (test code=BOB) NEGATIVE NEGATIVE UA LEUKOCYTE ESTERASE W REFLEX (test code=LEUUR) 500 Linh/uL (3+) Linh/uL NEGATIVE UA WBC (test code=WBCU) 11-20 per HPF 0-5 UA RBC (test code=RBCU) 25-50 #/HPF 0-5 UA WBC CLUMPS (test code=WBCUCL) 3-6 /HPF NONE UA EPITHELIAL CELLS (test code=EPIU) FEW per HPF FEW UA BACTERIA (test code=BACU) FEW #/HPF NONE UA MUCUS (test code=MUCU) FEW #/LPF FEW Urine Source? Clean Catch- US PELVIS [id number] 19:30:00 Name: HOMERO KENNEDY [facility] : 1960 Age/S: 57 / F [address] [facility] Unit #: [id number] Loc: [place] [address] Phys: Ozzy Barragan MD Acct: [id number] Di s Date: Status: REG ER PHONE #: [phone] Exam Date: 10/04/20181915 FAX #: Reason: vaginal bleeding EXAMS: CPT CODE: [id number] US PELVIS COM PLETE [id number] HISTORY: Vaginal bleeding . COMPARISON: CT scan abdomen and pelvis from January 01, 2018. Transabdominal and transvaginal (for better endometrial and ovarian evaluation) pelvic ultrasound: Patient is post hysterectomy. No pelvic mass or pelvic free fluid. Partially opacified urinary bladder. IMPRESSION: Patient is post hysterectomy. O varies are not seen. No pelvic mass or free fluid. Electron ically Signed by Anshul Huynh on 10/04/2018 at 1930 Reported and signed by: Shoaib Huynh M.D. CC: Brendon Subramanian DO; Cassandra Barragan MD Technologist: Wan Ramirez Trnmtb Date/Time: 10/04/2018 (1929) [email or web address] Orig Print D/T: S: 10/04/2018 (1932) Probe: PAGE 1 Signed Report - US TRANSVAGINAL NON [id number] 19:30:00 Name: HOMERO KENNEDY [facility] : 1960 Age/S: 57 / F [address] [facility] Unit #: [id number] Loc: [place] [address] Phys: Cassandra Barragan MD Acct: [id number] Dis Date: Status: REG ER PHONE #: [phone] Exam Date: 10/04/20181915 FAX #: [phone] Reason: vaginal bleeding EXAMS: CPT CODE: [id number] [place] [address] HISTORY: Vaginal bleeding. COMPARISON: CT scan abdomen and pelvis from January 01, 2018. Transabdominal and transvaginal (for better endometrial and ovarian evaluation) pelvic ultrasound: Patient is post hysterectomy. No pelvic mass or pelvic free fluid. Partially opacified urinary bladder. IMPRESSION: Patient is post hysterectomy. Ovaries are not seen. No pelvic mass or free fluid. at 1930 Reported and signed by: Shoaib Huynh M.D. CC: Brnedon Hollingsworth DO; Cassandra Barragan MD Technologist: Wan Ramirez Trnscb Date/Time: 10/04/2018 (1929) [email or web address] Orig Print D/T: S: 10/04/2018 (1932) Probe: [id number] PAGE 1 Signed Report CKMB 2018-10-04 19:17:00* Test Item Value Reference Range Comments CKMB (test code=CKMBT) 1.2 ng/mL 0-6.0 [id number] 19:17:00* Test Item Value Reference Range Comments TROPONIN-I (test code=TROPI) <0.015 ng/mL 0-0.045 HEPATIC FUNCTION [id number] 19:11:00* Test Item Value Reference Range Comments TOTAL PROTEIN (test code=PROT) 9.6 gram/dL 6.4-8.2 ALBUMIN (test code=ALB) 3.5 g/dL 3.4-5.0 GLOBULIN (test code=GLOB) 6.1 gram/dL 2.7-4.2 ALBUMIN/GLOBULIN RATIO (test code=A/G) 0.6 0.75-1.50 BILIRUBIN TOTAL (test code=BILT) 0.30 mg/dL 0.0-1.0 BILIRUBIN DIRECT (test code=BILD) < 0.05 mg/dL 0.0-0.20 SGOT/AST (test code=AST) 10 IUnit/L 15-37 SGPT/ALT (test code=ALT) 14 IUnit/L 12-78 ALKALINE PHOSPHATASE TOTAL (test code=ALKP) 167 IUnit/L 45-117 Note change in reference range due to change in reagent. [id number] 19:11:00* Test Item Value Reference Range Comments LIPASE (test code=LIP) 96 U/L 73.0-393.0 BASIC METABOLIC [id number] 18:54:00* Test Item Value Reference Range Comments SODIUM (test code=NA) 134 mmol/L 136-145 POTASSIUM (test code=K) 3.4 mmol/L 3.5-5.1 CHLORIDE (test code=CL) 101.0 mmol/L 98-107 CARBON DIOXIDE (test code=CO2) 25.0 mmol/L 21-32 ANION GAP (test code=GAP) 11.4 10-20 GLUCOSE (test code=GLU) 307 mg/dL 74-106 BLOOD UREA NITROGEN (test code=BUN) 8 mg/dL 7-18 GLOMERULAR FILTRATION RATE (test code=GFR) > 60 mL/min >=60 Estimated GFR by using Modified MDRD formula.Chronic kidney disease is defined as either kidney damageor GFR <60 mL/min/1.73 m2 for >3 months. CREATININE (test code=CREAT) 0.80 mg/dL 0.55-1.02 Note change in reference range due to change in reagent. BUN/CREATININE RATIO (test code=BUN/CREA) 10.0 10-20 CALCIUM (test code=CA) 9.0 mg/dL 8.5-10.1 PROTHROMBIN [id number] 18:49:00* Test Item Value Reference Range Comments PROTHROMBIN TIME PATIENT (test code=PTP) 11.4 seconds 9.0-14.0 INTERNATIONAL NORMAL RATIO (test code=INR) 1.0 0.8-1.2 The therapeutic range for oral anticoagulant therapy formost indications is an international normalized ratio (INR)of between 2.0 and 3.0. The recommended therapeutic INRrange for various clinical situations is listed below: Clinical Situation INR range Pulmonary e mbolism treatment (2.0-3.0)Venous thrombosis treatmentVenous thrombosis prophylaxis (high risk surgery)Prevention of systemic embolism from: Acute myocardial infarction Valvular heart disease Atrial fibrillation Mechanical prosthetic heart valves (2.5-3.5) IS PATIENT ON ANTICOAGULANTS? NLIST ANTICOAGULANTS ASPIRINIS PATIENT ON ANTICOAG ULANTS? YTHROMBOPLASTIN TIME [id number] 18:49:00* Test Item Value Reference Range Comments THROMBOPLASTIN TIME PARTIAL (test code=PTT) 32.5 seconds 25.0-36.5 IS PATIENT ON ANTICOAGULANTS? NLIST ANTICOAGULANTS ASPIRINIS PATIENT ON ANTICOAG ULANTS? YBASIC METABOLIC [id number] 18:46:00* Test Item Value Reference Range Comments SODIUM (test code=NA) 134 mmol/L 136-145 POTASSIUM (test code=K) 3.4 mmol/L 3.5-5.1 CHLORIDE (test code=CL) 101.0 mmol/L 98-107 CARBON DIOXIDE (test code=CO2) mmol/L 21-32 ANION GAP (test code=GAP) 10-20 GLUCOSE (test code=GLU) mg/dL 74-106 BLOOD UREA NITROGEN (test code=BUN) mg/dL 7-18 GLOMERULAR FILTRATION RATE (test code=GFR) mL/min >=60 CREATININE (test code=CREAT) mg/dL 0.55-1.02 BUN/CREATININE RATIO (test code=BUN/CREA) 10-20 CALCIUM (test code=CA) mg/dL 8.5-10.1 CBC W/AUTO [id number] 18:39:00* Test Item Value Reference Range Comments WHITE BLOOD CELL (test code=WBC) 10.2 K/mm3 4.5-12.5 RED BLOOD CELL (test code=RBC) 4.82 mill/mm3 3.7-5.2 HEMOGLOBIN (test code=HGB) 13.4 gram/dL 11.5-15.5 HEMATOCRIT (test code=HCT) 41.2 % 36.0-46.0 MEAN CELL VOLUME (test code=MCV) 85.5 fL 80-98 MEAN CELL HGB (test code=MCH) 27.8 picogram 27.0-33.0 MEAN CELL HGB CONCETRATION (test code=MCHC) 32.5 gram/dL 33.0-36.0 RED CELL DISTRIBUTION WIDTH (test code=RDW) 13.3 % 11.6-16.2 RED CELL DISTRIBUTION WIDTH SD (test code=RDW-SD) 41.5 fL 37.0-51.0 PLATELET COUNT (test code=PLT) 465 K/mm3 150-450 MEAN PLATELET VOLUME (test code=MPV) 8.8 fL 6.7-11.0 NEUTROPHIL % (test code=NT%) 64.2 % 39.0-69.0 IMMATURE GRANULOCYTE % (test code=IG%) 0.5 % 0.0-5.0 LYMPHOCYTE % (test code=LY%) 27.9 % 25.0-55.0 MONOCYTE % (test code=MO%) 6.6 % 0.0-10.0 EOSINOPHIL % (test code=EO%) 0.0 % 0.0-5.0 BASOPHIL % (test code=BA%) 0.8 % 0.0-1.0 NUCLEATED RBC % (test code=NRBC%) 0.0 % 0-0 NEUTROPHIL # (test code=NT#) 6.53 K/mm3 1.8-7.7 IMMATURE GRANULOCYTE # (test code=IG#) 0.05 x10 3/uL 0-0.03 LYMPHOCYTE # (test code=LY#) 2.83 K/mm3 1.0-5.0 MONOCYTE # (test code=MO#) 0.67 K/mm3 0-0.8 EOSINOPHIL # (test code=EO#) 0.00 K/mm3 0.0-0.5 BASOPHIL # (test code=BA#) 0.08 K/mm3 0.0-0.2 NUCLEATED RBC # (test code=NRBC#) 0.00 K/mm3 0.0-0.1 MANUAL DIFF REQUIRED (test code=MDIFF) NO - US ABDOMEN [id number] 11:53:00 Name: HOMERO KENNEDY [facility] : 1960 Age/S: 57 / F [address] [facility] Unit #: [id number] Loc: [place] [address] Phys: Brendon Hollingsworth DO Acct: [id number] Dis Date: Status: REG CLI PHONE #: [phone] Exam Date: 09/22/2018 1035 FAX #: [phone] Reason: R19.07 EXAMS: CPT CODE: [id number] US ABDOMEN COMPLETE 09809 HISTORY: Abdominal pain COMPARISON: July 19, 2018. The liver is hyperechogenic suggesting fibrofatty infiltration which limited evaluation for hepatic mass however no discrete lesions. The liver is measuring 19 cm in length and is enlarged. No intra or extrahepatic biliary ductal dilatation. CBD is normal at 4.5 mm. Main portal vein is patent with hepatopedal flow and normal spectral waveform. Patient is post cholecystectomy. No ascites. Kidneys are free from hydronephrosis and calyceal stones with normal echogenicity and texture. Right kidney is measuring 11.4 cm in length. Left kidney measuring 10.5 cm in length. Spleen is nonenlarged at 8.7 cm in length. Visualized portions of the IVC, aorta and pancreas are normal however imaged incompletely. IMPRESSION: Patient is post cholecystectomy. Fibrofatty infiltrated liver with hepatomegaly. Unremarkable kidneys and spleen. at 1153 Reported and signed by: Shoaib Huynh M.D. CC: Brendon Hollingsworth DO Technologist: JAMAR CANALES RT(R),RDMS Trnscb Date/Time: 09/22/2018 (7293) [email or web address].[email or web address] Orig Print D/T: S: 09/22/2018 (2162) Probe: PAGE 1 Signed Report - US ABDOMEN [id number] 10:33:00 Name: HOMERO KENNEDY [facility] : 1960 Age/S: 57 / F [address] [facility] Unit #: [id number] Loc: [place] [address] Phys: Destiny Hollingsworth DO Acct: [id number] Di s Date: Status: REG CLI PHONE #: Exam Date: 07/19/2018 1000 FAX #: Reason: R10.84,K58.1 EXAMS: CPT CODE: [id number] US ABDOMEN CO MPLETE 23287 HISTORY: R10.84/K58. COMPARISON: Abdominal ultrasound from February 25, [address] scan abdomen and pelvis from January 01, 2018. The liver is mildly hy perechogenic suggesting mild fibrofatty infiltration which limited evaluat ion for intrahepatic mass. No discrete lesions. The liver is measuring 19. 4 cm in length. No intra or extrahepatic biliary ductal dilatation . CBD is normal at 1.9 mm. Main portal vein is patent with hepatopedal lokesh w and normal spectral waveform. Patient is post cholecystect rohit. Kidneys are free from hydronephrosis and calyceal stones. Nor mal echogenicity and texture. Right kidney measured 11 cm and left kidney measured 10.3 cm in length. Spleen is not enlarged at 8 cm in length. Visualized portions of the IVC, aorta and pancreas are normal ho wever imaged incompletely. IMPRESSION: Patient is post cholecystectomy. Unremarkable spleen and kidneys. Fibrofatty in filtrated liver with mild hepatomegaly. at 1033 Reported and signed by: Shoaib Huynh M.D. CC: Demetrius Hollingsworth Technologist: JAMAR CANALES RTSteph),RDMS Trnmtb Date/Time: 07/19/2018 (1033) [email or web address] Orig Print D/T: S: 07/19/2018 (5026) Probe: PAGE 1 Signed Report DUODENUM,BIOPSY 2018-01-22 12:51:00 RUN DATE: 01/22/18 [facility] PAGE 1 RUN TIME: 1251 Specimen Inqui ry RUN USER: INTERFACE PATIENT: HOMERO KENNEDY ACCT #: [id number] [facility] [place] [facility] #: [id number] AGE/SX: 57/F ROOM: RE01/20/18REG DR: Sang Ulloa MD : [birth year] BED: DIS: STATUS: ROBBI BULLOCK TLOC: SPEC #: [id number] RECD: 01/20/18 STATUS: VIVIANE BOYCE #: [id number] YOHANA: 01/20/18- SUBM DR: Sang Ulloa MD ENTERED: 01/20/18 SP TYPE: BX DUODEN TALAT DR: ORDERED: GROSS PROCEDURES: GROSS (01/21/18-1143) TISSUES: 1. DUODENUM, NOS - BX COLD 2. GASTRIC FUNDUS - COLD BX CLINICAL HISTORY COLLECTION DATE: 01/20/18 COMMENT A few structu res are identified by Giemsa stain at the lumenal border of the gastric biopsy. These lack the typical spiraled architecture of Helicobacter pylori. Paraffin embedded tissue from this block was submitted to [facility] for an immunoperoxidase s tain for Helicobacter. The slide is reviewed at [facility]. The stain highlights the structures confirming Helicobacter organisms. FINAL D IAGNOSIS Duodenum, cold biopsy: DUODENAL MUCOSA WITH UNREMARKABLE VILL OUS ARCHITECTURE, MILD CHRONIC INFLAMMATION AND EDEMA NO ACUTE I NFLAMMATORY INFILTRATE PRESENT NO INCREASED NUMBER OF INTRAEPITHELIAL LYM PHOCYTES AT VILLOUS TIPS NEGATIVE FOR MALIGNANCY Gastric, biopsy: MILD CHRONIC GASTRITIS WITHOUT ACTIVITY POSITIVE FOR HELICOBACTER O RGANISMS, see comment NEGATIVE FOR INTESTINAL METAPLASIA NEGATIVE FOR MALIGNANCY RRB/gm D 2)[id number], [id number], [id number] CONTINUED ON NEXT PAGE RUN DATE: 01/22/18 [facility] PAGE 2 RUN TIME: 1251 Specimen Inquiry RUN USER: IN BARBRA SP EC #: [id number] PATIENT: HOMERO KENNEDY #[id number] ( Continued) MACROSCOPIC The first specimen is received in formalin, labeled with the patient's name, identified as "duodenum bx", and consists of multiple martinez biopsy tissue measuring 1.3 cm in aggregate, submitt ed as (1). The second specimen is received in formalin, labeled with the p atient's name, identified as "gastric bx", and consists of two martinez biopsy tiss ue measuring 0.1 and 0.5 cm each, submitted as (2) for H E and Giemsa stains. GROSS PERFORMED AT [facility] [address] [place] [address] (p)[phone] MICROSCOPIC CHANTE ROSCOPIC PERFORMED AT [facility] All of the stains, including any controls performed, stain appropriately. [facility] [address] [place] [id number] (p)[phone] PERFORMING SITE Pr ocessed at: [facility], [address] [place] [address] Signed SIGNATURE ON FILE Jay Edmonds 01/22/18 1251 END OF REPORT
[2018-11-25 10:35] VITALS: BP 124/86
--- NOTE | 2018-11-25 10:45 | Operative Report ---
DATE OF PROCEDURE: 11/25/2018 SURGEON: Maurisio Chavez MD PROCEDURE: Esophagogastroduodenoscopy with biopsies. INDICATION FOR EGD: Dyspepsia, history of H pylori. MEDICATION: The patient was done under MAC, please see anesthesiologist's note. PROCEDURE IN DETAIL: With the patient in left lateral decubitus position, flexible fiberoptic Olympus gastroscope was introduced into the esophagus under direct visualization without any difficulty. There was some patchy erythema noted in distal esophagus. Some focal nodularity was noted at the GE junction and biopsies were obtained. The scope was then advanced with ease into the stomach traversing a small sliding hiatal hernia. Mucosa overlying the antrum revealed some patchy intense erythema and moderate edema and biopsies were obtained and sent to stain for H pylori. The mucosa overlying the distal body revealed some atrophic changes and biopsies were obtained to rule out atrophic gastritis. Minute polyps were noted in the body of the stomach, they were hyperplastic appearing and biopsies were obtained. The pylorus was of normal contour and shape, it was intubated with ease and the scope was advanced all the way to the second portion of the duodenum. The scope was then withdrawn slowly and mucosa overlying the proximal second portion and the duodenal bulb appeared to be within normal limits. The scope was then withdrawn back into the stomach and retroflexed and mucosa overlying the fundus and the cardia appeared to be within normal limits. The scope was then straightened out, the stomach was decompressed, scope was subsequently withdrawn. The patient tolerated procedure well. IMPRESSION: 1. Distal esophagitis, mild. 2. Focal nodularity, GE junction, biopsied. 3. Small sliding hiatal hernia. 4. Rule out atrophic gastritis. Biopsies obtained and sent to stain for H pylori. 5. Gastric polyps, body, some partially excised with the cold biopsy forceps. PLAN: Follow up histology. Initiate Protonix 40 mg one p.o. q.a.m. a.c. Maurisio Chavez MD [facility] [place] /[id number] cc: Brendon Hollingsworth DO
== END | disposition home or self-care (01) ==
LOC: OR 06:54
PROVIDERS: ATTEND Internal Medicine Gastroenterology
DX: K29.50 Unspecified chronic gastritis without bleeding (principal); K31.7 Polyp of stomach and duodenum; K20.9 Esophagitis, unspecified; K29.60 Other gastritis without bleeding; K31.89 Other diseases of stomach and duodenum; K44.9 Diaphragmatic hernia without obstruction or gangrene; K74.0 Hepatic fibrosis; A04.8 Other specified bacterial intestinal infections; K64.4 Residual hemorrhoidal skin tags; K59.00 Constipation, unspecified; M19.90 Unspecified osteoarthritis, unspecified site; I25.10 Atherosclerotic heart disease of native coronary artery without angina pectoris; I10 Essential (primary) hypertension; E11.9 Type 2 diabetes mellitus without complications; K76.0 Fatty (change of) liver, not elsewhere classified; K58.9 Irritable bowel syndrome, unspecified; Z01.810 Encounter for preprocedural cardiovascular examination; Z01.812 Encounter for preprocedural laboratory examination; Z95.5 Presence of coronary angioplasty implant and graft; Z79.82 Long term (current) use of aspirin; Z79.84 Long term (current) use of oral hypoglycemic drugs; Z79.4 Long term (current) use of insulin; Z68.30 Body mass index [BMI] 30.0-30.9, adult
CPT/HCPCS: 36415; 43239; 82948; 93005; J1817; J2250; J3010